=== PATIENT | male | born 1965 | race Caucasian/White ===

== ENCOUNTER 2017-01-28 14:29 | Emergency (ER) | payer SELFPAY ==
[~2017-01-28] VITALS: Ht 175.3 cm; Wt 78.0 kg
[2017-01-28 15:23] LABS: HEMATOCRIT 48.1 % (39.0-50.0); HEMOGLOBIN 16.4 g/dl (14.0-18.0); IMMATURE GRANULOCYTES 0.5 % (0.0-1.0); MEAN CORPUSCULAR HGB 31.7 pG CALC (26.0-32.0); MEAN CORPUSCULAR HGB CONC 34.1 g/L CALC (32.0-36.0); NEUT# 11.08 thou/uL (1.82-7.42); RED BLOOD COUNT 5.17 mill/uL (4.70-6.10); RED CELL DISTRI WIDTH 13.1 % (11.5-15.5)
[2017-01-28 15:50] LABS: ALBUMIN 4.6 g/dL (3.2-5.0); ALKALINE PHOSPHATASE 75 u/l (38-126); AMYLASE 56 u/l (30-110); ANION GAP 16 (6-22 (CALC)); BILIRUBIN, TOTAL 1.2 mg/dL (0.0-1.4); BUN 22 mg/dL (9-20); BUN/CREATININE RATIO 21 (12-20 (CALC)); CALCIUM 9.3 mg/dL (8.4-10.2); CARBON DIOXIDE 25 mmol/l (22-30); CHLORIDE 102 mmol/l (95-108); ETHYL ALCOHOL 0 mg/dl (0-30); GFR > 60 ML/MIN (>=60 (CALC)); GFR FOR AFR.AMER. > 60 ML/MIN (>=60 (CALC)); GLUCOSE 102 mg/dL (75-110); LIPASE 68 u/l (23-300); SGOT/AST 41 u/l (17-59); SGPT/ALT 33 u/l (21-72); SODIUM 138 mmol/l (137-146); TOTAL PROTEIN 7.9 g/dL (6.3-8.2)
[2017-01-28 15:52] LABS: URINE BILIRUBIN - DIPSTICK NEGATIVE (NEGATIVE); URINE BLOOD DIPSTICK TRACE-LYSED (NEGATIVE); URINE CLARITY CLEAR; URINE COLOR YELLOW; URINE GLUCOSE - DIPSTICK NEGATIVE (NEGATIVE); URINE KETONE NEGATIVE (NEGATIVE); URINE LEUK ESTERASE NEGATIVE (NEGATIVE); URINE NITRITE - DIPSTICK NEGATIVE (Negative); URINE PROTEIN - DIPSTICK NEGATIVE (NEG-TRACE); URINE SPECIFIC GRAVITY >=1.030; URINE UROBILINOGEN - DIPSTICK 0.2 E.U./dL (0.2)
[2017-01-28 15:57] LABS: POTASSIUM 5.3 mmol/l (3.5-5.1)
[2017-01-28 16:01] LABS: MYOGLOBIN 43 ng/mL (0 - 121)
[2017-01-28 16:33] LABS: COCAINE NEGATIVE (NEGATIVE); TETRAHYDROCANNABIONOL NEGATIVE (NEGATIVE)
[2017-01-28 16:34] LABS: BARBITURATES NEGATIVE (NEGATIVE); METHADONE NEGATIVE (NEGATIVE); TRICYLIC ANTIDEPRESSANTS NEGATIVE (NEGATIVE)
[2017-01-28 16:35] LABS: OXCYCODONE NEGATIVE (NEGATIVE)
[2017-01-28] MEDS ORDERED: TAMSULOSIN0.4 MG PO (17:27)
[2017-01-28] MEDS ORDERED: TRAMADOL HYDROC50 MG PO (17:27)
[2017-01-28] MEDS ORDERED: CIPROFLOXACN500 MG PO (17:27)
[2017-01-28 18:00] VITALS: BP 113/72
== END 2017-01-28 18:20 | disposition home or self-care (01) | DRG 392 ==
LOC: ED 14:29
PROVIDERS: Emergency Medicine
DX: R10.11 Right upper quadrant pain (principal); K92.1 Melena; R10.31 Right lower quadrant pain; F17.210 Nicotine dependence, cigarettes, uncomplicated; R11.0 Nausea; R07.0 Pain in throat